=== PATIENT | male | born 1940 | race Caucasian/White ===

== ENCOUNTER → 2019-07-06 | Outpatient (CLI) | payer MEDICARE ==
[2015-10-18 09:14] VITALS: BP 135/70
[~2019-07-06] MED LIST: DILT240C32 PO; LISI1TAB23 PO; TAMS0.4C2 PO; TAMS0.4C97 PO
--- NOTE | 2019-07-06 16:44 | KCIC ---
Clinical indications: Left hip pain. Left sciatic notch pain. FIVE-VIEW LUMBAR SPINE SERIES FINDINGS: The transverse processes are intact. No acute compression fracture is evident. Mild to moderate degenerative endplate spurring and disc space narrowing is seen throughout the lumbar spine. No discitis or lytic process is seen. Minimal grade 1 anterolisthesis of L4-5 is seen. No spondylolysis is seen. There is mild facet arthropathy of the lower lumbar spine and L5-S1. IMPRESSION: Mild to moderate degenerative lumbar spondylosis. No acute compression fracture. 2 VIEW STUDY OF THE LEFT HIP: FINDINGS: No acute fracture or dislocation or lytic process is seen. No significant arthritic change is evident. IMPRESSION: No significant osseous abnormality of the left hip. Electronically signed by: Johnnie Garcia MD (07/06/2019 4:41 PM) [facility] [place]
== END | disposition home or self-care (01) ==
LOC: KCIC 09:48
PROVIDERS: ATTEND Family Medicine
DX: M25.552 Pain in left hip (principal); M54.32 Sciatica, left side
CPT/HCPCS: 72110; 73502